=== PATIENT | male | born 1990 | race Caucasian/White ===

== ENCOUNTER 2022-04-26 18:55 | Emergency (ER) | payer BC ==
[2022-04-26 20:04] LABS: HEMOGLOBIN 17.1 gm/dl (14.0-17.5); RED BLOOD COUNT 5.66 M/UL (4.20-5.50); WHITE BLOOD COUNT 7.7 K/UL (4.5-11.0)
[2022-04-26 20:24] LABS: BUN/CREATININE RATIO 14 (0-10)
== END 2022-04-26 23:00 | disposition home or self-care (01) ==
LOC: ER1 18:55
PROVIDERS: Physician Assistant
DX: R07.9 Chest pain, unspecified (principal); I10 Essential (primary) hypertension; Z90.49 Acquired absence of other specified parts of digestive tract; Z88.2 Allergy status to sulfonamides; Z88.1 Allergy status to other antibiotic agents
CPT/HCPCS: 71045; 80053; 82550; 82553; 84484; 85025; 93005; 99285